=== PATIENT | male | born 1955 | race Caucasian/White ===

== ENCOUNTER → 2023-06-22 08:02 | Outpatient (REF) | payer MEDICARE, SELFPAY | LOC: HWRCS 08:02 | PROVIDERS: ATTENDING PHYSICIAN Internal Medicine Cardiovascular Disease; FAMILY PHYSICIAN Family Medicine | DX: R07.89 Other chest pain (principal) | CPT/HCPCS: 93306 ==

== ENCOUNTER → 2023-07-13 08:10 | Outpatient (REF) | payer MEDICARE, SELFPAY | LOC: DHCBC/DCA 08:10 | PROVIDERS: ATTENDING PHYSICIAN Internal Medicine Cardiovascular Disease; FAMILY PHYSICIAN Family Medicine | DX: R07.89 Other chest pain (principal) | CPT/HCPCS: 78452; 93017; A9500; J2785 ==

== ENCOUNTER → 2023-10-06 06:55 | Outpatient (REF) | payer MEDICARE, SELFPAY | LOC: PAVMRI 06:55 | PROVIDERS: ATTENDING PHYSICIAN Orthopaedic Surgery; FAMILY PHYSICIAN Family Medicine | DX: M54.50 Low back pain, unspecified (principal) | CPT/HCPCS: 72148 ==

== ENCOUNTER → 2024-04-07 08:44 | Outpatient (REF) | payer MEDICARE, SELFPAY | LOC: HWRAD 08:44 | PROVIDERS: ATTENDING PHYSICIAN Family Medicine; REFERRING PHYSICIAN Specialist | DX: Z87.891 Personal history of nicotine dependence (principal) | CPT/HCPCS: 71271 ==

== ENCOUNTER 2024-04-08 19:53 | Emergency (ER) | payer MEDICARE, SELFPAY ==
[2024-04-08 19:56] VITALS: BP 122/110; BMI 33.1
--- NOTE | 2024-04-08 21:42 | ED.GENMED ---
History of Present Illness
General
Chief Complaint: Alcohol Problem
Source: patient, spouse and ambulance crew
Time Seen by Provider: 04/08/24 20:05
Nursing documentation reviewed up to this point in time: agreed with
History of Present Illness
History of Present Illness:
Patient with history of chronic alcoholism, presents to ED from home after passing out, and sitting position, after heavy alcohol consumption, including whiskey this afternoon. Patient was laid to the ground by family members where he woke up
within couple of minutes. Upon arrival, patient is alert, awake, and oriented, and without any complaints. Denies chest pain or palpitations. Denies nausea or vomiting. Denies dizziness. Denies headache. Patient and spouse feel comfortable
going home at this time, without any further workup. Per spouse, patient unfortunately has had number of similar episodes in the past, after heavy alcohol consumption.
Past History
Past History
ED Past Medical History: Cancer (Prostate), COPD, GERD, HTN and Other (BPH, osteoarthritis)
ED Past Surgical History: Urological (Prostatectomy) and Other (Hernia repair)
Social History
Tobacco: Former smoker
Alcohol: Daily
Drug: Marijuana
Personal:
Living: with family
Review of Systems
Review of Systems
Allergies reviewed?: Yes
All Other Systems: ROS reviewed and negative except as documented in HPI and ROS
Constitutional: Reports no symptoms
Respiratory: Reports no symptoms
Cardiac: Reports diaphoresis and syncope; Denies chest pain or palpitations
ABD/GI: Reports no symptoms
: Reports no symptoms
Musculoskeletal: Reports no symptoms
Skin: Reports no symptoms
Neurological: Reports no symptoms
Phy Exam
Physical Exam
Physical Exam:
Physical Exam
General: no apparent distress, not acutely ill. afebrile
Head: nc/at. eomi
Neck: supple. no meningeal signs.
Heart: s1/s2 regular rate and rhythm, no murmur. equal radial pulses.
Lungs: no acute respiratory distress. clear bilaterally
Abdomen: normal bowel sounds. not tender.
Neuro: alert and oriented. no focal neurological deficits
Skin: no rash
Psychiatric: well kept. interactive and cooperative
Extremities: no edema. no calf tenderness.
Scores
Withdrawal Assessment of Alcohol
Withdrawal Assessment Completed?: Not applicable
Course
Vital Signs
Initial and Last Documented VS:
Initial Vital Signs
Temp Pulse Resp BP Pulse Ox
98.4 F 76 14 122/110 97
04/08/24 19:56 04/08/24 19:56 04/08/24 19:56 04/08/24 19:56 04/08/24 19:56
Last Documented Vital Signs
Temp Pulse Resp BP Pulse Ox
98.4 F 76 14 122/110 97
04/08/24 19:56 04/08/24 19:56 04/08/24 19:56 04/08/24 19:56 04/08/24 19:56
MDM/Problems Addressed
MDM/Problems Addressed:
Patient with likely vasovagal syncope, after heavy alcohol consumption. Patient otherwise is afebrile, hemodynamically stable, neurologically intact, and without any distress, at time of discharge. Strongly recommend to the patient, regards to
cessation of alcohol intake, as he may have unfortunate that outcome, should this occur again. Patient expresses understanding at time of discharge.
*Critical Care Note
Total Time (30-74mins, 75-104mins- exclusive of procedures): Not Applicable
ED Attending Note
-
Portions of this chart may have been created with voice recognition software.� Occasional wrong word or��sound alike� substitutions may have occurred due to the inherent limitations of voice recognition software.
Discharge Plan
Departure
Patient Disposition: Home (Routine Discharge)
Date of Disposition: 04/08/24
Time of Disposition: 21:42
Patient with high blood pressure during this ER visit?: Yes
Condition: Fair
Discharge Problem:
Alcohol intoxication
Instructions: Alcohol Use Disorder (DC)
Prescriptions:
No Action
metoprolol succinate 50 MG tablet extended release 24 hr
50 mg PO HS
lisinopril 20 MG tablet
40 mg PO DAILY
amlodipine 10 MG tablet
10 mg PO HS
zolpidem 10 MG tablet
10 mg PO HS
cetirizine [Zyrtec] 10 MG tablet
10 mg PO DAILY
ascorbic acid (vitamin C) [Vitamin C] 500 MG tablet
500 mg PO DAILY
meloxicam 15 MG tablet
15 mg PO DAILY Qty: 30 3RF
multivitamin with folic acid [Tab-A-Saul] 1 TABLET tablet
1 tab PO DAILY
gabapentin 300 MG capsule
300 mg PO BID Qty: 60 5RF
acetaminophen 500 mg Tablet
1,000 mg PO Q6H PRN (Reason: pain)
Referrals:
Lesvia Arshad MD [Family Provider] -
Activity Restrictions/Additional Instructions:
As discussed, please follow up with your primary care physician with any further concerns. Please recommend cessation of alcohol, as it is contributing to your presenting symptoms.
Interventions
Interventions:
*Risk Screen - Suicide Last Done: 04/08/24 19:56
*General Assessment Last Done: 04/08/24 19:56
*Neglect/Abuse Screening Last Done: 04/08/24 19:56
ED- Fall Risk Assessment Last Done: 04/08/24 21:00
*ED COVID-19 Vaccine History Last Done: 04/08/24 19:56
*Nursing Disposition Last Done: 04/08/24 22:24
ED- Neurological Assessment Last Done: 04/08/24 21:00
ED-Psychological Assessment Last Done: 04/08/24 21:00
Discharge Date and Time
Discharge Date/Time: 04/08/24 22:25
Print Language: ICELANDIC
== END 2024-04-08 22:25 | disposition home or self-care (01) ==
LOC: EMR 19:53
PROVIDERS: EMERGENCY PHYSICIAN Emergency Medicine; FAMILY PHYSICIAN Family Medicine
DX: F10.129 Alcohol abuse with intoxication, unspecified (principal); I10 Essential (primary) hypertension; Z87.891 Personal history of nicotine dependence
CPT/HCPCS: 99282

== ENCOUNTER → 2024-07-28 10:18 | Outpatient (REF) | payer MEDICARE, SELFPAY | LOC: RAD 10:18 | PROVIDERS: ATTENDING PHYSICIAN Family Medicine | DX: R05.9 Cough, unspecified (principal); R91.8 Other nonspecific abnormal finding of lung field | CPT/HCPCS: 71046 ==

== ENCOUNTER → 2024-11-24 10:39 | Outpatient (REF) | payer OTHER, MEDICARE, SELFPAY ==
[2024-11-24 11:27] LABS: Hematocrit 23.8 % (39.0-52.0); Hemoglobin 7.5 g/dL (13.0-18.0); Mean Corp Hgb Conc. 31.5 g/dL (33.0-37.0); Mean Corpuscular Volume 97.5 fL (80.0-94.0); Nucleated Red Blood Cells % 0.6 % (-); Platelet Count 312 10^3/uL (130-400); Red Cell Dist. Width 15.8 % (11.5-14.5)
[2024-11-24 11:40] LABS: ALT (SGPT) 46 U/L (0-50); AST (SGOT) 25 U/L (17-59); Albumin 3.0 g/dl (3.5-5.0); Alkaline Phosphatase 67 U/L (38-126); Blood Urea Nitrogen 10 mg/dl (9-20); Calcium 8.2 mg/dl (8.4-10.2); Carbon Dioxide 29 mmol/L (22-30); Chloride 103 mmol/L (98-107); Glucose 83 mg/dl (70-99); Potassium 3.8 mmol/L (3.5-5.1); Sodium 134 mmol/L (135-145); Total Protein 5.2 g/dl (6.3-8.2); eGFR > 60.00
== END ==
LOC: OLABP 10:39
PROVIDERS: ATTENDING PHYSICIAN Family Medicine
DX: S22.41XD Multiple fractures of ribs, right side, subsequent encounter for fracture with routine healing (principal); W19.XXXD Unspecified fall, subsequent encounter
CPT/HCPCS: 36415; 80053; 85025

== ENCOUNTER → 2024-11-25 12:06 | Outpatient (REF) | payer OTHER, MEDICARE, SELFPAY ==
[2024-11-25 12:18] LABS: Hematocrit 26.0 % (39.0-52.0); Hemoglobin 8.5 g/dL (13.0-18.0); Mean Corp Hgb Conc. 32.7 g/dL (33.0-37.0); Mean Corpuscular Volume 94.5 fL (80.0-94.0); Platelet Count 328 10^3/uL (130-400); Red Cell Dist. Width 15.9 % (11.5-14.5)
== END ==
LOC: OLABP 12:06
PROVIDERS: ATTENDING PHYSICIAN Family Medicine
DX: S22.41XD Multiple fractures of ribs, right side, subsequent encounter for fracture with routine healing (principal); W19.XXXD Unspecified fall, subsequent encounter; N35.919 Unspecified urethral stricture, male, unspecified site
CPT/HCPCS: 36415; 85027

== ENCOUNTER → 2024-11-27 14:25 | Outpatient (REF) | payer OTHER, MEDICARE, SELFPAY ==
[2024-11-27 15:18] LABS: Urine Character Slightly Cloudy (Clear)
[2024-11-27 16:02] LABS: Urine White Cell >100 /HPF (0-5)
== END ==
LOC: OLABP 14:25
PROVIDERS: ATTENDING PHYSICIAN Family Medicine
DX: S22.41XD Multiple fractures of ribs, right side, subsequent encounter for fracture with routine healing (principal); W19.XXXD Unspecified fall, subsequent encounter; D72.829 Elevated white blood cell count, unspecified; Z46.82 Encounter for fitting and adjustment of non-vascular catheter; R10.2 Pelvic and perineal pain
CPT/HCPCS: 81003; 81015; 87077; 87086; 87186